=== PATIENT | male | born 2000 | race African-American/Black ===

== ENCOUNTER 2021-03-13 14:26 | Emergency (ER) | payer OTHER ==
[2021-03-13] MEDS ORDERED: Lidocaine 1% w/Epinephrine 1:100K 20 ML VIAL ONE (15:02)
[2021-03-13] MEDS ORDERED: Triple Antibiotic Oint 1 GM Packet ONE (15:33)
[2021-03-13] MEDS ORDERED: Boostrix 0.5 ML (Tdap) VIAL ONE (15:33)
== END 2021-03-13 15:30 | disposition home or self-care (01) ==
LOC: CSHERS 14:26
DX: S61.412A Laceration without foreign body of left hand, initial encounter (principal); Z23 Encounter for immunization; W22.8XXA Striking against or struck by other objects, initial encounter
CPT/HCPCS: 12001; 90471; 90715